=== PATIENT | male | born 1990 | race Caucasian/White ===

== ENCOUNTER 2018-02-08 03:43 | Emergency (ER) | payer BC ==
[2018-02-08] MEDS ORDERED: Morphine INJ* 10 MG/ML 1 ML CARPUJECT IV ONE (04:05)
[2018-02-08] MEDS ORDERED: Ondansetron INJ* 2 MG/ML VIAL IV ONE (04:05)
[2018-02-08] MEDS ORDERED: Ketorolac INJ* 30 MG/ML 1 ML VIAL IV ONE (04:05)
[2018-02-08] MEDS ORDERED: NS 0.9% 1000 ML* 2,000 ML IV ONE (04:05)
[2018-02-08] MEDS ORDERED: Morphine VIAL* 4 MG/ML VIAL (1 ml vial) IV ONE ×2 (04:13→04:20)
[2018-02-08 04:36] LABS: ABS Basophils 0.1 10^3/ul (0-0.2); ABS Eosinophils 0.1 10^3/ul (0-0.6); ABS Lymphocytes 2.9 10^3/ul (1.0-4.8); ABS Monocytes 0.6 10^3/ul (0-0.8); ABS Neutrophils 5.3 10^3/ul (1.5-7.7); ABS Nucleated RBC 0 10^3/ul; Eosinophil % 1.6 % (0-6); Hematocrit 44 % (42-52); Hemoglobin 15.1 g/dl (14.0-18.0); Lymphocyte % 31.8 % (25-47); Mean Corpuscular HGB Conc 34 g/dl (31-36); Mean Corpuscular Hemoglobin 31 pg (27-31); Mean Corpuscular Volume 89 fL (80-94); Mean Platelet Volume 8.4 um3 (7.4-10.4); Nucleated Red Blood Cells % 0; Platelet Count 241 10^3/ul (150-450); Red Blood Count 4.92 10^6/ul (4.0-5.4); Red Cell Distribution Width 14 % (10.5-15); White Blood Count 9.1 10^3/ul (3.5-10.8)
[2018-02-08 04:55] LABS: INR 0.94 (0.77-1.02)
[2018-02-08] MEDS ORDERED: Tamsulosin CAP* 0.4 MG PO ONE (05:42)
[2018-02-08 06:31] LABS: Urine Appearance Cloudy; Urine Blood 3+ (Negative); Urine Color Yellow; Urine Ketones Negative (Negative); Urine Protein 1+(30 mg/dL) (Negative); Urine Specific Gravity 1.019 (1.010-1.030); Urine Urobilinogen Negative (Negative)
[2018-02-08] MEDS ORDERED: oxyCODONE/Acetamin 5/325 MG* TAB PO ONE (06:35)
[2018-02-08 07:14] VITALS: BP 131/89
--- NOTE | 2018-02-08 08:17 | RAD ---
CLINICAL HISTORY: Right flank pain COMPARISON: None TECHNIQUE: Noncontrast CT examination of the abdomen and pelvis from the lung bases through the initial tuberosities. FINDINGS: VISUALIZED LUNG BASES: The visualized lung bases are grossly clear. There is no pleural effusion. ABDOMEN AND PELVIS: Evaluation of the solid organs and vasculature is limited without intravenous contrast. The liver, spleen, pancreas and adrenal glands are grossly normal in appearance. The gallbladder is normal. The left kidney normal in appearance without focal mass, calcification or signs of hydronephrosis. At the right mid level ureter there is a 4 mm calcification (axial image 135). There is a very mild degree of right-sided hydronephrosis. The small and large bowel are not distended.The patient's normal appendix is identified in the right lower quadrant with gas in the lumen measuring 5 mm in diameter (axial image 117). There is no gross retroperitoneal or mesenteric lymphadenopathy. The pelvic viscera is normal in appearance. The abdominal aorta and iliac arteries are normal in course and diameter. There are no sinister bone lesions. IMPRESSION: 4 mm calcification at the mid-level right ureter with a mild degree of ipsilateral hydronephrosis.
--- NOTE | 2018-02-16 12:23 | ED ---
Nicole Valentine Rebecca, scribed for Rebeca Richardsuel on 02/08/18 at 0356 . Abdominal Pain/Male - HPI Summary HPI Summary: Pt is a 27 y/o M who presents to ED c/o abdominal pain. Sx began suddenly this morning at 0130, waking him up from sleep. Pain is on the right side of the abdomen and is severe, ranked 10/10. Pt reports he noticed mild back pain last night prior to going to bed. Denies hematuria. No PMHx kidney stones. - History of Current Complaint Chief Complaint: EDAbdPain Stated Complaint: ABD PAIN Time Seen by Provider: 02/08/18 03:53 Hx Obtained From: Patient Onset/Duration: Sudden Onset, Still Present Severity Currently: Severe Pain Intensity: 10 Pain Scale Used: 0-10 Numeric Location: Other - Right side Aggravating Factor(s): Nothing Alleviating Factor(s): Nothing Associated Signs And Symptoms: Positive: Back Pain - Allergies/Home Medications Allergies/Adverse Reactions: Allergies Allergy/AdvReac Type Severity Reaction Status Date / Time Sulfa (Sulfonamide Allergy Unknown Verified 02/08/18 03:50 Antibiotics) Reaction Details PMH/Surg Hx/FS Hx/Imm Hx Previously Healthy: Yes Endocrine/Hematology History: Denies: Hx Diabetes History: Denies: Hx Kidney Stones Infectious Disease History: No Infectious Disease History: Denies: Traveled Outside the [place] in Last 30 Days - Family History Known Family History: Positive: Cardiac Disease, Diabetes, Other - HLD - Social History Alcohol Use: Occasionally Substance Use Type: Reports: None Smoking Status (MU): Former Smoker Review of Systems Positive: Abdominal Pain Negative: hematuria Positive: Other - Back pain All Other Systems Reviewed And Are Negative: Yes Physical Exam - Summary Physical Exam Summary: Appearance: Well appearing, pain distress Skin: warm, dry, reflects adequate perfusion Head/face: normal Eyes: EOMI, CAT ENT: normal Neck: supple, non-tender Respiratory: CTA, breath sounds present Cardiovascular: RRR, pulses symmetrical Abdomen: tenderness in the R flank, soft Bowel: present Musculoskeletal: normal, strength/ROM intact Neuro: normal, sensory motor intact, A&Ox3 Triage Information Reviewed: Yes Vital Signs On Initial Exam: Initial Vitals Temp Pulse Resp BP Pulse Ox 97.3 F 86 22 141/112 99 02/08/18 03:48 02/08/18 03:48 02/08/18 03:48 02/08/18 03:48 02/08/18 03:48 Vital Signs Reviewed: Yes Diagnostics - Vital Signs Vital Signs Temp Pulse Resp BP Pulse Ox 02/08/18 03:48 97.3 F 86 22 141/112 99 - Laboratory Result Diagrams: 02/08/18 04:25 02/08/18 04:25 Lab Statement: Any lab studies that have been ordered have been reviewed, and results considered in the medical decision making process. - CT CT Abd/Pel CT Interpretation Completed By: Radiologist - Mild right hydronephrosis secondary to a 2 mm mid right uteteral stone. ED physician reviewed this radiology report. Re-Evaluation - Re-Evaluation First Eval Re-Evaluation Time: 06:36 Comment: Discussed results, pt's sx have improved. Abdominal Pain Fem Course/Dx - Course Assessment/Plan: Pt is a 27 y/o M who presents to ED c/o acute onset right- sided abdominal pain since 0, waking him up from sleep. Pain is severe, ranked 10/10. Pt reports he noticed mild back pain last night prior to going to bed. Denies hematuria. No PMHx kidney stones. Blood work and UA were done. CT abd/Pel reveals mild right hydronephrosis secondary to a 2 mm mid right uteteral stone. In the ED course, pt was given Flomax, morphine, zofran, percocet, fluids and toradol which improved sx. Pt will be D/C to home with Dx of renal colic with Rx for Percocet and Flomax and a follow up with . He understands and agrees. Allergy noted. - Diagnoses Provider Diagnoses: Renal colic Discharge - Sign-Out/Discharge Documenting (check all that apply): Discharge/Admit/Transfer - Discharge - Discharge Plan Condition: Stable Disposition: HOME Prescriptions: Oxycodone HCl/Acetaminophen [Percocet] 1 tab PO TID #15 tab MDD 3 Tamsulosin HCl [Flomax] 0.4 mg PO ONCE #15 cap Patient Education Materials: Renal Colic (ED) Referrals: [facility] [place] [facility] [Outside] - 3 Days Tae Baez MD [Medical Doctor] - 3 Days Additional Instructions: RETURN TO ED FOR ANY RETURNING OR WORSENING SYMPTOMS. The documentation as recorded by the scribNciole alvarado Rebecca accurately reflects the service I personally performed and the decisions made by me, Saeed Richards.
== END 2018-02-08 07:10 | disposition home or self-care (01) ==
LOC: ED 03:43
DX: N13.2 Hydronephrosis with renal and ureteral calculous obstruction (principal); Z88.2 Allergy status to sulfonamides; Z87.891 Personal history of nicotine dependence
CPT/HCPCS: 36415; 74176; 80053; 81003; 81015; 83690; 85025; 85610; 85730; 87086; 96374; 96375; 99284; A9270-GY; J1885; J2270; J2405

== ENCOUNTER 2018-03-10 04:41 | Emergency (ER) | payer BC ==
[2018-03-10] MEDS ORDERED: HYDROmorphone INJ* 2 MG/ML CARPUJECT SYRINGE IV SLOW PU PRN (04:48)
[2018-03-10] MEDS ORDERED: NS 0.9% 1000 ML* 1,000 ML IV ONE (04:48)
[2018-03-10] MEDS ORDERED: Metoclopramide IV* 5 MG/ML 2 ML VIAL IV ONE (04:48)
[2018-03-10] MEDS ORDERED: Ketorolac INJ* 30 MG/ML 1 ML VIAL IV ONE (04:48)
[2018-03-10 05:08] LABS: ABS Basophils 0.1 10^3/ul (0-0.2); ABS Eosinophils 0.2 10^3/ul (0-0.6); ABS Lymphocytes 4.2 10^3/ul (1.0-4.8); ABS Monocytes 0.7 10^3/ul (0-0.8); ABS Neutrophils 4.9 10^3/ul (1.5-7.7); ABS Nucleated RBC 0 10^3/ul; Eosinophil % 1.5 % (0-6); Hematocrit 43 % (42-52); Hemoglobin 14.8 g/dl (14.0-18.0); Lymphocyte % 41.5 % (25-47); Mean Corpuscular HGB Conc 34 g/dl (31-36); Mean Corpuscular Hemoglobin 31 pg (27-31); Mean Corpuscular Volume 90 fL (80-94); Mean Platelet Volume 8.1 um3 (7.4-10.4); Nucleated Red Blood Cells % 0; Platelet Count 229 10^3/ul (150-450); Red Blood Count 4.81 10^6/ul (4.0-5.4); Red Cell Distribution Width 13 % (10.5-15)
[2018-03-10 05:27] LABS: EGFR Non-African American 70.7 (>60)
[2018-03-10] MEDS ORDERED: Tamsulosin CAP* 0.4 MG PO ONE (06:01)
[2018-03-10 06:04] LABS: Urine Appearance Clear; Urine Blood 3+ (Negative); Urine Color Yellow; Urine Ketones Negative (Negative); Urine Protein Negative (Negative); Urine Specific Gravity 1.028 (1.010-1.030); Urine Urobilinogen Negative (Negative)
--- NOTE | 2018-03-10 06:47 | ED ---
Sabas Valentine Tiffany, scribed for Ricky Salinas MD on 03/10/18 at 0459 . Abdominal Pain/Male - HPI Summary HPI Summary: 27 y/o M presenting to [facility] complains of right flank pain since 03:00 today. The patient rates the pain 10/10 in severity. Symptoms aggravated by nothing. Symptoms alleviated by nothing. Reports nausea, vomiting. Has hx of kidney stones. Per , pt hasn't passed kidney stone from 1 month ago. Pt has been seeing Dr. Baez, urology. - History of Current Complaint Chief Complaint: EDFlankPain Stated Complaint: FLANK PAIN Time Seen by Provider: 03/10/18 04:47 Hx Obtained From: Patient, Family/Plastic Shaper - Onset/Duration: Lasting Hours - 2 hours ago, Still Present Timing: Constant Severity Currently: Severe Pain Intensity: 10 Pain Scale Used: 0-10 Numeric Location: Flank - right Aggravating Factor(s): Nothing Alleviating Factor(s): Nothing Associated Signs And Symptoms: Positive: Nausea, Vomiting - Allergies/Home Medications Allergies/Adverse Reactions: Allergies Allergy/AdvReac Type Severity Reaction Status Date / Time Sulfa (Sulfonamide Allergy Unknown Verified 03/10/18 04:57 Antibiotics) Reaction Details PMH/Surg Hx/FS Hx/Imm Hx Previously Healthy: No Endocrine/Hematology History: Denies: Hx Diabetes History: Reports: Hx Kidney Stones Sensory History: Denies: Hx Legally Blind, Hx Deafness Opthamlomology History: Denies: Hx Legally Blind EENT History: Denies: Hx Deafness Psychiatric History: Denies: Hx Panic Disorder - Surgical History Surgery Procedure, Year, and Place: None Infectious Disease History: No Infectious Disease History: Denies: Traveled Outside the [place] in Last 30 Days - Family History Known Family History: Positive: Cardiac Disease, Diabetes, Other - HLD - Social History Alcohol Use: Occasionally Hx Substance Use: No Substance Use Type: Reports: None Hx Tobacco Use: Yes Smoking Status (MU): Former Smoker Review of Systems Negative: Fever Positive: Vomiting, Nausea, Other - Right flank pain All Other Systems Reviewed And Are Negative: Yes Physical Exam - Summary Physical Exam Summary: VITAL SIGNS: Reviewed. GENERAL: Patient is a well-developed and nourished (MALE OR FEMALE) who is lying comfortable in the stretcher. Patient is not in any acute respiratory distress. HEAD AND FACE: No signs of trauma. No ecchymosis, hematomas or skull depressions. No sinus tenderness. EYES: PERRLA, EOMI x 2, No injected conjunctiva, no nystagmus. EARS: Hearing grossly intact. Ear canals and tympanic membranes are within normal limits. MOUTH: Oropharynx within normal limits. NECK: Supple, trachea is midline, no adenopathy, no JVD, no carotid bruit, no c- spine tenderness, neck with full ROM. CHEST: Symmetric, no tenderness at palpation LUNGS: Clear to auscultation bilaterally. No wheezing or crackles. CVS: Regular rate and rhythm, S1 and S2 present, no murmurs or gallops appreciated. ABDOMEN: Right CVA tenderness EXTREMITIES: FROM in all major joints, no edema, no cyanosis or clubbing. NEURO: Alert and oriented x 3. No acute neurological deficits. Speech is normal and follows commands. SKIN: Dry and warm Triage Information Reviewed: Yes Vital Signs On Initial Exam: Initial Vitals Temp Pulse Resp BP Pulse Ox 97.3 F 84 22 114/87 97 03/10/18 04:43 03/10/18 04:43 03/10/18 04:43 03/10/18 04:43 03/10/18 04:43 Vital Signs Reviewed: Yes Diagnostics - Vital Signs Vital Signs Temp Pulse Resp BP Pulse Ox 03/10/18 04:43 97.3 F 84 22 114/87 97 - Laboratory Result Diagrams: 03/10/18 04:55 03/10/18 04:55 Lab Statement: Any lab studies that have been ordered have been reviewed, and results considered in the medical decision making process. - CT Abd/Pel CT Interpretation Completed By: Radiologist - 3 mm stone distal right ureter causing minimal hydronephrosis. ED physician has reviewed this report. Abdominal Pain Fem Course/Dx - Course Course Of Treatment: 27 y/o M presenting to [facility] complains of right flank pain since 03:00 today. Imaging/bloodwork/UA obtained. Pt will be discharged with prescription and follow up from Dr. Baez, urology. - Diagnoses Provider Diagnoses: Renal colic Discharge - Sign-Out/Discharge Documenting (check all that apply): Discharge/Admit/Transfer - Discharge Plan Condition: Stable Disposition: HOME Prescriptions: Metoclopramide TAB* [Reglan TAB*] 10 mg PO Q6H PRN #20 tab PRN Reason: Nausea/Vomiting oxyCODONE/Acetamin 5/325 MG* [Percocet 5/325 TAB*] 1 tab PO Q6H PRN #14 tab MDD 4 PRN Reason: Pain Tamsulosin CAP* [Flomax CAP*] 0.4 mg PO DAILY #7 cap Patient Education Materials: Renal Colic (ED), Flank Pain (ED) Referrals: No Primary Care Phys,NOPCP [Primary Care Provider] - Tae Baez MD [Medical Doctor] - 2 Days Additional Instructions: Follow up with Dr. Baez, urology, in 1-2 days. Return to the Emergency Department for any new or worsening symptoms. The documentation as recorded by the Sabas salgado Tiffany accurately reflects the service I personally performed and the decisions made by Rita interiano Abdul, MD.
[2018-03-10 07:05] VITALS: BP 124/71
--- NOTE | 2018-03-10 08:30 | RAD ---
INDICATION: Right flank pain. History of kidney stones COMPARISON: CT February 08, 2018 TECHNIQUE: Noncontrast axial source images were acquired from the level hemidiaphragms to the symphysis pubis as part of CT imaging for renal stone. Lung bases: There is a rounded 2 mm nodule in the right middle lobe which is likely chronic inflammatory focus. The lung bases are otherwise clear. Liver: The liver is normal in size. Noncontrast imaging shows no evidence of a hepatic mass or ductal dilatation. Gallbladder: There are no calcified gallstones. There is no evidence of wall thickening or pericholecystic fluid.. Spleen: The spleen is normal in size. The noncontrast CT appearance is normal. Pancreas: Noncontrast imaging shows no pancreatic mass or ductal dilitation. Adrenal glands: No masses are identified. Kidneys/Bladder: There is a 4 mm calculus at the right UVJ producing mild obstructive findings with mild worsening. There are no other calcifications of urinary significance. Noncontrast imaging shows no evidence of a renal mass. The bladder is unremarkable.. Adenopathy: There is no evidence of intraperitoneal or retroperitoneal adenopathy. Evaluation is limited without oral contrast. Fluid collections: There are no free or localized fluid collections. Vessels: The aorta and iliac vessels are normal in caliber. There are no significant atherosclerotic changes. The IVC appears normal Pelvic organs: The uterus and adnexa appear normal GI tract: Evaluation of the bowel is limited without oral contrast. The stomach, small bowel, and lower GI tract appear grossly normal. There are no obstructive findings. The appendix is visualized and appears normal. Soft tissues: No soft tissue abnormalities of the extraperitoneal abdomen or pelvis are identified. Osseous structures: There are no acute osseous findings. IMPRESSION: THE PREVIOUSLY IDENTIFIED RIGHT-SIDED 4 MM CALCULUS IS NOW AT THE RIGHT UVJ. THERE IS PERSISTENT MILD HYDRONEPHROSIS AND HYDROURETER. THE EXAMINATION IS OTHERWISE UNCHANGED.
== END 2018-03-10 07:03 | disposition home or self-care (01) ==
LOC: ED 04:41
DX: N13.2 Hydronephrosis with renal and ureteral calculous obstruction (principal); Z87.442 Personal history of urinary calculi; Z88.2 Allergy status to sulfonamides; Z87.891 Personal history of nicotine dependence
CPT/HCPCS: 36415; 74176; 80053; 81003; 81015; 83690; 83735; 85025; 86140; 87086; 96361; 96374; 96375; 99282; J1170; J1885; J2765